=== PATIENT | female | born 1980 | race African-American/Black ===

== ENCOUNTER 2017-02-20 09:45 | Inpatient (IN) ==
[2017-02-20] MEDS ORDERED: DILTIAZEM 50 MG/10 ML VIAL IV STA (10:11)
[2017-02-20] MEDS ORDERED: SODIUM CHLORIDE 0.9% 500 ML IV STA (10:11)
--- NOTE | 2017-02-20 10:13 | Emergency Department Note ---
Asha Shook Gwan, am scribing for, and in the presence of, Singh Jackson MD 10:07 . Renetta Shook James D, MD, personally performed the services described in this documentation, ascribed by Latricia Barry in my presence, and it is both accurate and complete . Arrival - Arrival Chief Complaint: Syncope Stated Complaint: feeling miguel and hot/have pacemaker ED Nursing Triage Note: Pt c/o feeling faint, dizzy, and weakness since yesterday. Denies CP or SOB. Mode of Arrival: Ambulatory Limitations: No Limitations Source: Patient, Old Records Reviewed, RN Notes Reviewed - History of Present Illness HPI Narrative: Patient is a 37 y/o female, with a hx of Sudden Cardiac , who presents to the ED with a c/o dizziness, generalized weakness and feeling faint with an onset yesterday. Patient denies chest pain, SOB or the actual feeling of her heart beating fast. . She confirmed that she had her defibrillator inserted in 2012 and that she recently started back working. Patient is followed by Dr. Snow at [place] and that she was last seen in office less than 3 months ago with negative results . Pt has a PMHx of HTN and Internal Defibrillator. Onset (ago): day(s) Consistency: constant Severity: moderate Allergies/Adverse Reactions: Allergies Allergy/AdvReac Type Severity Reaction Status Date / Time No Known Allergies Allergy Verified 02/20/17 09:48 Home Medications: Home Medications Medication Instructions Recorded Confirmed Type Metoprolol Tartrate 50 mg PO BID 02/20/17 02/20/17 History amLODIPine [Norvasc] 10 mg PO QAM 02/20/17 02/20/17 History Review of System - Review of System 12 point system: reviewed and no additional remarkable complaints except as stated - Review of System Constitutional: Present: as per HPI, fever, weakness Eyes: Absent: discharge Head/Ears/Nose/Throat: Absent: earache Respiratory: Absent: cough Cardiovascular: Absent: chest pain Gastrointestinal: Present: diarrhea. Absent: nausea, vomiting Musculoskeletal: Absent: arm pain, leg pain Medical,Surgical,& Family Hx - Medical History Cardio: History of: Hypertension - Surgical History Cardiac Surgeries: Sugical HX of: Internal Defibrillator - Social History Smoking Status: Never smoker Exam Physical Examination: GENERAL: This is a well-nourished, well-developed black female in no apparent distress. VITAL SIGNS: HEENT: Head is normocephalic and atraumatic. Pupils are equally round and reactive to light. Extraocular movement are intact. Oropharynx is benign with moist mucous membranes. NECK: Neck is soft and supple without tenderness. There are no masses. There is no lymphadenopathy. LUNGS: Lungs are clear to auscultation bilaterally. Chest rises symmetrically. There is no chest wall tenderness. CV: Heart is irregular rate and irregular rhythm. ABDOMEN: Abdomen is soft, non-tender to palpation. There are no abnormal masses palpated. There is no organomegaly. Bowel sounds are present and active. SKIN: Skin is warm and dry. No rash. EXTREMITIES: Patient has full range of motion without tenderness. There is no pedal edema. NEUROLOGIC: Awake, alert, and oriented x4. Cranial nerves II through XII are grossly intact. There are no motorsensory deficits. PSYCHIATRIC: Normal affect. Normal mood. Vital Signs: Vital Signs Temperature 96.7 F L 02/20/17 10:53 Pulse Rate 142 H 02/20/17 10:53 Respiratory Rate 18 02/20/17 10:53 Blood Pressure 95/54 02/20/17 10:53 O2 Sat by Pulse Oximetry 100 02/20/17 09:52 Course Course Narrative: Patient was given Cardizem bolus and infusion while in the emergency department. - Consultations Consultation #1: Discussed with Dr. Waldron. Patient will be admitted to his service. Initial orders written for him. He will assume care upon patient's arrival to the [facility]. Time: 11:30 Results - Labs CBC & BMP: 02/20/17 10:27 02/20/17 10:27 Lab Results: I have reviewed the patients labs Labs: Laboratory Tests 02/20/17 10:27 INR 1.0 PT Patient/Control Mix 10.8 Circ Anticoag PTT 24.7 Laboratory Tests 02/20/17 10:27 Troponin I < 0.015 Laboratory Tests 02/20/17 02/20/17 10:27 10:27 WBC 5.2 RBC 4.84 Hgb 9.9 L Hct 33.4 L MCV 69.0 L MCH 21 L MCHC 29.6 L RDW 18.5 H Baso % (Auto) 1.0 H Sodium 141 Potassium 4.1 Chloride 111 H Carbon Dioxide 22 BUN 13 Creatinine 0.90 Glucose 109 H Globulin 3.7 H Albumin/Globulin Ratio 0.9 L - EKG EKG results: interpreted by ERMD - Impressions EKG: Atrial fib with RVR, electronic ventricular pacemaker. T-wave inversion laterally and ST segment depression laterally. - Diagnostic Findings Procedure: Chest x-ray: image reviewed by me (No infiltrates, no pleural effusions, AICD in position.) Disposition Clinical Impression: Atrial fibrillation with RVR, History of sudden cardiac successfully resuscitated, Essential hypertension Case discussed with: patient, patient's family Disposition: Still a Patient Condition: Stable Time of Disposition: 10:28
[2017-02-20] MEDS ORDERED: DILTIAZEM 50 MG/10 ML VIAL IV ONE (10:14)
--- NOTE | 2017-02-20 10:25 | EKG Report ---
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
--- NOTE | 2017-02-20 10:29 | XRay Report ---
XR chest 1V portable Indication: SOB Comparison: Chest x-ray dated December 24, 2013 Technique: Single frontal view of the chest Findings: [id number] cardiomegaly. Cardiac pacemaker apparatus again noted. No focal consolidation, pleural effusion, or pneumothorax. Osseous and surrounding soft tissue structures appear grossly unchanged. IMPRESSION: Continued cardiomegaly without indy pulmonary edema. PROCEDURE INTERPRETED AT [facility] DEPARTMENT OF RADIOLOGY Final Report Signed by: Dr Manohar Cooper
[2017-02-20 10:48] LABS: PT Patient Result 10.8 SECS; Partial Thromboplastin Time 24.7 SECS (0-40)
[2017-02-20 11:03] LABS: Basophils # 0.1 10*3/uL (0.0-0.2); Eosinophils # 0.1 10*3/uL (0.0-0.87); Eosinophils % 2.3 % (0.00-10.9); Hematocrit 33.4 VOL% (35.7-47.0); Hemoglobin 9.9 GM/DL (12.0-16.0); Immature Granulocytes % 0.4 %; Immature Granulocytes Absolute 0.02 #; Lymphocytes # 1.7 10*3/uL (1.4-4.0); Lymphocytes % 32.1 % (21.3-54.2); Mean Corpuscular HGB Conc 29.6 GM/DL (32-36); Mean Corpuscular Hemoglobin 21 PG (27-34); Monocytes # 0.4 10*3/uL (0.11-0.8); Monocytes % 8.1 % (1.7-12.7); NRBC # 0.02 10*3/uL; Neutrophils # 2.9 10*3/uL (1.4-7.4); Neutrophils % 56.1 % (38.7-73.9); Platelet Count 149 T/CUMM (130-400); Red Blood Count 4.84 MC/CUMM (3.8-5.5); Red Cell Distribution Width 18.5 % (9.3-17.3); White Blood Count 5.2 T/CUMM (4-12)
[2017-02-20 11:05] LABS: Free T4 (Free Thyroxine) 1.06 NG/DL (0.76-1.46); Magnesium 2.3 MG/DL (1.8-2.4)
[2017-02-20 11:16] LABS: Alanine Aminotransferase 39 U/L (13-56); Albumin 3.5 G/DL (3.4-5.0); Alkaline Phosphatase 61 U/L (45-117); Aspartate Amino Transferase 22 U/L (0-37); Bilirubin,Total < 0.39 MG/DL (0.2-1.0); Blood Urea Nitrogen 13 MG/DL (7-18); Calcium 8.5 MG/DL (8.5-10.1); Glucose 109 MG/DL (74-106); Osmolality,Calculated 281.3 MOS/KG (273-304); Potassium 4.1 MMOL/L (3.5-5.1); Sodium 141 MMOL/L (136-145); Thyroid Stimulating Hormone 0.694 uIU/ml (0.358-3.74); Total Protein 7.2 G/DL (6.4-8.3); Troponin I Only < 0.015 NG/ML (0.00-0.045)
[2017-02-20] MEDS ORDERED: MAGNESIUM SULF RIDER 4 GM in PREMIX 1 EACH IV PRN (13:18)
[2017-02-20] MEDS ORDERED: MAGNESIUM SULF RIDER 2 GM in PREMIX 1 EACH IV PRN (13:18)
[2017-02-20] MEDS ORDERED: ONDANSETRON 4 MG/2 ML VIAL IV PRN (13:18)
[2017-02-20] MEDS ORDERED: ENOXAPARIN 40 MG/0.4 ML SYRINGE SUBCUT SCH (13:30)
[2017-02-20] MEDS: SODIUM CHLORIDE 0.9% 1,000 ML IV SCH (13:39)
--- NOTE | 2017-02-20 14:32 | Cardiology History & Physical ---
<Selin Clark E - Last Filed: 02/20/17 14:35> Assessment and Plan - Time spent with patient Time spent with patient: Greater than 30 minutes (1) Atrial fibrillation with RVR Status: Acute Assessment and plan: See plan of care listed below Current Visit: Yes (2) Essential hypertension Status: Chronic Assessment and plan: See plan of care listed below Current Visit: Yes (3) History of sudden cardiac successfully resuscitated Status: Chronic Assessment and plan: See plan of care listed below Current Visit: Yes (4) AICD (automatic cardioverter/defibrillator) present Status: Chronic Assessment and plan: See plan of care listed below Current Visit: Yes History of Present Illness Chief complaint: Atrial fibrillation with rapid ventricular response History of present illness: 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 Antony, 37BF, has risk factors significant for: hypertension. 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 She previously saw Dr. Mendez in clinic, she got behind on her bills and could not afford to pay his office therefore she transitioned to Dr. Kuo at [place]. She would like to change back to Dr. Mendez. Patient tells me she has her device interrogated every 3 months. Cardiac catheterization September 11, 2012 revealed no evidence of coronary artery disease, EF 50% without significant valvular disease. Patient presented to the emergency department at [facility] this morning with complaints of dizziness, generalized weakness and lightheadedness. This actually began yesterday. She was diagnosed with atrial fibrillation with rapid ventricular response. To her knowledge, this is a new diagnoses. She was given IV diltiazem and her heart rate has improved to approximately 100 bpm, she is feeling much better. No lightheadedness or dizziness at this time. She denies chest pain, heaviness or tightness. She denies shortness of breath and is usually very active. She has no prior history of CVA or stroke. She denies use of illicit drugs, excessive caffeine or energy drinks. CHADVASC SCORE 2. Patient is anemic with a hemoglobin and hematocrit 9.9 and 33.4 respectively. She tells me she is chronically anemic and takes oral iron. She does not take oral iron as prescribed. She still has a menstrual cycle and is currently on her menses. She tells me she has a heavy menstruation for 7 days a month. ASSESSMENT/PLAN: 1. ATRIAL FIBRILLATION WITH RVR -currently rate controlled on IV diltiazem. Will transition to oral diltiazem and wean off IV calcium channel astrid as able. Home medications include metoprolol and Norvasc. I will stop her Norvasc and start oral diltiazem. Patient believes this is new onset. I will ask that her device be interrogated in the morning. If this is truly new onset, may consider cardioversion. CHADVASC SCORE 2. We discussed anticoagulation with Dr. Mendez. I will also obtain records from Dr. Kuo's office. Echocardiogram has been ordered. 2. HYPERTENSION - patient reports good control. Will adjust medications accordingly during hospital stay 3. ANEMIA -we will add anemia studies, restart oral iron. 4. SUDDEN CARDIAC NOW S/P AICD 2011 -will have device interrogated in the morning. Home Medications Medication Instructions Recorded Confirmed Type Metoprolol Tartrate 50 mg PO BID 02/20/17 02/20/17 History amLODIPine [Norvasc] 10 mg PO QAM 02/20/17 02/20/17 History Allergies Allergy/AdvReac Type Severity Reaction Status Date / Time No Known Allergies Allergy Verified 02/20/17 09:48 Review of systems: REVIEW OF SYSTEMS: - Constitutional Constitutional: Present: Fatigue. Absent: syncope, anorexia, night sweats - EENT Eyes: Absent: blurry vision, loss of vision, diplopia Ears: Absent: decreased hearing, ear pain, ear discharge - Cardiovascular Cardiovascular: Denies: chest pain with exertion, dyspnea on exertion, edema. Acknowledges palpitations recently. Absent: chest pain with deep breath, claudication - Respiratory Respiratory: Denies: PRICE, cough. Absent: wheezing, hemoptysis, change in phlegm color - Gastrointestinal Gastrointestinal: Denies: constipation. Absent: abdominal pain, hematemesis, hematochezia, melena, change in bowel habits, nausea - Genitourinary Genitourinary: Absent: difficulty urinating, dysuria, urinary hesitancy, flank pain - Musculoskeletal Musculoskeletal: Denies: back pain Absent: joint swelling, muscle cramps, muscle weakness - Neurological Neurological: Present: normal gait without frequent falls. Recent dizziness, lightheadedness. Denies hemiparesis or paralysis. - Psychiatric Psychiatric: Absent: anxiety, depression, difficulty concentrating - Endocrine Endocrine: Present: fatigue. Absent: cold intolerance, heat intolerance, polyuria, polyphagia, polydipsia - Hematologic/Lymphatic Hematologic/Lymphatic: Present: easy bruising. Absent: easy bleeding -Integumentary Integumentary: Absent: lesions, rashes, skin breakdown Medical,Surgical,& Family Hx - Medical History Cardio: History of: Cardiac Dysrhythmia, Hypertension, Cardiovascular Problems ( 2011 sudden cardiac ) No history of: CAD, MT, Valvular Heart Disease Neurology: No history of: Seizures, TIA Endocrine: No history of: Diabetes Mellitus (NIDDM), Dyslipidemia, Thyroid Disorder - Surgical History Cardiac Surgeries: Sugical HX of: Internal Defibrillator Thoracic Surgeries: Patient denies;: Organ Transplant - Family History Family History: Reports;: Family Cancer (GRANDMOTHER, GRANDFATHER), Family Diabetes (MOTHER), Family Heart Disease (GRANDMOTHER), Family Hypertension ( MOTHER, SIBLINGS) - Social History Smoking Status: Never smoker Frequency of Alcohol Use: Frequently Type of Drug Use: None Cardiology Physical Exam - Constitutional Vitals: Vital Signs Temp Pulse Resp BP Pulse Ox 97.2 F L 83 18 99/48 99 02/20/17 13:27 02/20/17 13:27 02/20/17 13:27 02/20/17 13:27 02/20/17 13:27 Intake and Output 02/19/17 02/20/17 02/20/17 23:59 07:59 15:59 Intake Total Balance Intake: IV Cardizem Inj 125 mg In Ns 100 ml @ 10 MG/HR 10 mls /hr IV TITRATE PONCHO Rx#: [id number] Other: Weight 81.647 kg Patient Weight 02/20/17 23:59 Weight 81.647 kg Exam: General: [Appears well with no apparent distress.] [Pleasant and cooperative. ] [Appears comfortable.] HEENT: [PERRL, normocephalic, atraumatic. Mucous membranes moist. No jaundice noted. Conjunctiva moist and clear, sclerae anicteric] Neck: No JVD/HJR, no thyromegaly or lymphadenopathy noted. No carotid bruit appreciated Cardiac: [Irregularly irregular rhythm, tachycardia rate] [No obvious murmur, rub or gallop.] Left chest incision healing well without dehiscence or drainage Lungs: [Clear to auscultation without accessory muscle use to assist the respiratory pattern.] Not requiring oxygen Abdomen: Soft, bowel sounds normoactive. Nontender and nondistended. No abdominal bruit or thrill noted. No masses noted. Musculoskeletal: No fluid collection. Decreased range of motion is noted. Extremities: No clubbing, cyanosis noted. [ No edema noted.] Upper extremity pulses 2+. Lower extremity pulses 2+. Capillary refill less than 3 seconds. Skin: No unusual lesions or rashes. No skin breakdown appreciated. Neuro: Awake, alert and oriented 3. Moves all extremities well without hemiparesis or paralysis. No essential tremor is appreciated. Result/EKG - Labs CBC & BMP: 02/20/17 10:27 02/20/17 10:27 Lab Results: I have reviewed the past 24 hour labs - Diagnostic Findings Procedure: Chest x-ray: report reviewed by ks - EKG EKG results: interpreted by ks EKG shows: atrial fibrillation <Shaquille Mendez - Last Filed: 02/20/17 20:20> History of Present Illness History of present illness: Patient personally interviewed and examined and chart reviewed. I discussed this case with Selin Clark NP. I agree with the assessment and evaluation and plan. In summation in addition Ms. Antony is a 37 year old female who previously has had severe cardiomyopathy and sudden requiring AICD no 2011. The patient has not Follow-up. She's been seeing Dr. Kuo [facility]. The patient though was admitted this time after having feeling of weak and tired with standing and atrial fibrillation with rapid ventricular response. We will now start the process of evaluating the patient. We have found on echocardiogram his left ventricular function is normal with her atrium is slightly dilated. No significant valvular abnormalities. I discussed our plan of anticoagulation and rate control and possible cardioversion soon. It appears clinically this may be gone on for the last couple days. Cardiology Physical Exam - Constitutional Vitals: Vital Signs Temp Pulse Resp BP Pulse Ox 97.7 F 88 18 106/70 97 02/20/17 15:45 02/20/17 15:45 02/20/17 15:45 02/20/17 15:45 02/20/17 15:45 Intake and Output 02/20/17 02/20/17 02/20/17 07:59 15:59 23:59 Intake Total 20 / 20 Balance Intake: IV Cardizem Inj 125 mg In Ns 100 ml @ 10 MG/HR 10 mls /hr IV TITRATE PONCHO Rx#: [id number] Other: Weight 81.647 kg Patient Weight 02/20/17 23:59 Weight 81.647 kg Result/EKG - Labs CBC & BMP: 02/20/17 15:09 02/20/17 10:27 Labs: Laboratory Results - last 24 hr 02/20/17 02/20/17 02/20/17 15:06 15:08 15:09 WBC 5.3 RBC 4.73 Hgb 9.7 L Hct 33.3 L MCV 70.8 L MCH 21 L MCHC 29.0 L RDW 18.5 H Plt Count 135 MPV 11.3 Neut % (Auto) 51.8 Lymph % (Auto) 39.7 Barbour % (Auto) 5.8 Eos % (Auto) 1.5 Baso % (Auto) 0.8 Neut # (Auto) 2.8 Lymph # (Auto) 2.1 Barbour # (Auto) 0.3 Eos # (Auto) 0.1 Baso # (Auto) 0.0 Immature Gran % 0.4 Nucleated RBC % 0.0 Immature Gran # 0.02 Nucleated RBCs # 0.00 Absolute Retic 0.1 Percent Retic 2.0 H Retic Hgb Equivalent 21.5 L Ferritin 4.7 L Vitamin B12 Folate Urine Opiates Screen Ur Barbiturates Screen Ur Phencyclidine Scrn U Amphetamine/Methamph U Benzodiazepines Scrn U Cocaine Metab Screen U Cannabinoids Screen MARIELA (IgG-AHG) Negative MARIELA, Polyspecific Negative 02/20/17 02/20/17 15:09 Unknown WBC RBC Hgb Hct MCV MCH MCHC RDW Plt Count MPV Neut % (Auto) Lymph % (Auto) Barbour % (Auto) Eos % (Auto) Baso % (Auto) Neut # (Auto) Lymph # (Auto) Barbour # (Auto) Eos # (Auto) Baso # (Auto) Immature Gran % Nucleated RBC % Immature Gran # Nucleated RBCs # Absolute Retic Percent Retic Retic Hgb Equivalent Ferritin Vitamin B12 650 Folate > 24.0 H Urine Opiates Screen Negative Ur Barbiturates Screen Negative Ur Phencyclidine Scrn Negative U Amphetamine/Methamph Positive H U Benzodiazepines Scrn Negative U Cocaine Metab Screen Negative U Cannabinoids Screen Positive H MARIELA (IgG-AHG) MARIELA, Polyspecific
[2017-02-20] MEDS ORDERED: DILTIAZEM 30 MG TABLET PO SCH (15:00)
[2017-02-20 15:24] LABS: Basophils % 0.8 % (0.0-0.8); Eosinophils # 0.1 10*3/uL (0.0-0.87); Eosinophils % 1.5 % (0.00-10.9); Hemoglobin 9.7 GM/DL (12.0-16.0); Immature Granulocytes % 0.4 %; Immature Granulocytes Absolute 0.02 #; Lymphocytes # 2.1 10*3/uL (1.4-4.0); Lymphocytes % 39.7 % (21.3-54.2); Mean Corpuscular Hemoglobin 21 PG (27-34); Mean Corpuscular Volume 70.8 FL (87-102); Mean Platelet Volume 11.3 FL (9.6-12.0); Monocytes # 0.3 10*3/uL (0.11-0.8); Monocytes % 5.8 % (1.7-12.7); Neutrophils # 2.8 10*3/uL (1.4-7.4); Neutrophils % 51.8 % (38.7-73.9); Platelet Count 135 T/CUMM (130-400); Red Blood Count 4.73 MC/CUMM (3.8-5.5); Red Cell Distribution Width 18.5 % (9.3-17.3); White Blood Count 5.3 T/CUMM (4-12)
[2017-02-20] MEDS: ASCORBIC ACID 500 MG TABLET PO SCH ×2 (15:43→21:13)
[2017-02-20 15:44] LABS: Hematocrit 33.3 VOL% (35.7-47.0)
[2017-02-20 15:53] LABS: Folate > 24.0 NG/ML (5.4-24.0); Vitamin B12 650 PG/ML (211-911)
[2017-02-20 16:16] LABS: Barbiturates Screen,Urine Negative (Negative); Benzodiazepines Screen,Urine Negative (Negative); Cannabinoid Screen,Urine Positive (Negative); Opiate Screen,Urine Negative (Negative); Phencyclidine Screen,Urine Negative (Negative)
--- NOTE | 2017-02-20 19:48 | ECHO Report ---
Christine Antony Exam Date: 02/20/2017 11:58 Referring Physician: Technologist: Nataliya Terrell LRJONATHAN Age: 37 Ht (in): Wt (lb): Gender: F Exam Location: [facility] Echo Indications: A fib, hx. sudden cardiac dealth BP: / HR: 75 Rhythm: atrial fibrillation Technical Quality: limited and fair at best IMPRESSIONS 1. Patient in atrial fibrillation with rapid ventricular response. 2. Left ventricle is normal size and overall normal ejection fraction around 55%. There is moderate to severe concentric left ventricular hypertrophy. Diastolic dysfunction is not amenable secondary to atrial fibrillation. 3. Left atrium at worst is mildly dilated. 4. Mitral valve anatomically normal with trace to mild regurgitation. 5. Mild tricuspid regurgitation. 6. Normal right-sided pressures. MEASUREMENTS (Male / Female) Normal Values 2D ECHO LV Diastolic Diameter PLAX 4.5 cm 4.2 - 5.9 / 3.9 - 5.3 cm LV Systolic Diameter PLAX 2.9 cm LV Fractional Shortening PLAX 36.4 % IVS Diastolic Thickness 1.9 cm 0.6 - 1.0 / 0.6 - 0.9 cm LVPW Diastolic Thickness 1.7 cm 0.6 - 1.0 / 0.6 - 0.9 cm RV Internal Dim ED PLAX 1.9 cm Aortic Root Diameter 2.5 cm LA Systolic Diameter LX 4.1 cm 3.0 - 4.0 / 2.7 - 3.8 cm DOPPLER TR Peak Velocity 236.0 cm/s TR Peak Gradient 22.3 mmHg FINDINGS Left Ventricle Left ventricle is normal size and overall normal systolic function but the patient is tachycardic. Ejection fraction is probably around 55%. There is moderate to severe concentric left ventricular hypertrophy. Right Ventricle Normal right ventricular size. Right Atrium Normal right atrial size. Left Atrium Mildly increased left atrial diameter. Mitral Valve Mitral valve is anatomically morphologically normal. Trace to mild mitral valve regurgitation. Aortic Valve The aortic valve is trileaflet, delicate and has normal motion. No Doppler abnormalities. Tricuspid Valve Morphologically normal tricuspid valve. Mild tricuspid valve regurgitation. Tricuspid regurgitation velocities suggest a PAP of 22.3 mmHg + RAP. Pulmonic Valve Mild pulmonic valve sclerosis. Trace pulmonary valve regurgitation. Pericardium No pericardial effusion. Aorta Normal size aortic root and proximal ascending aorta. Shaquille Waldron MD (Electronically Signed) Final Date: 20 Feb 2017 19:47
[2017-02-20 20:38] LABS: Sedimentation Rate-Westergren 20 MM/HR (0-20)
[2017-02-20] MEDS ORDERED: METOPROLOL TARTRATE 50 MG TABLET PO SCH (21:00)
[2017-02-20] MEDS: SOTALOL 80 MG TABLET PO SCH (21:13)
[2017-02-20] MEDS: FERROUS SULFATE 325 MG TABLET PO SCH (21:13)
[2017-02-20] MEDS: DILTIAZEM 60 MG TABLET PO SCH (21:13)
[2017-02-20] MEDS: APIXABAN 5 MG TABLET PO SCH (21:14)
[2017-02-20 22:22] LABS: Anisocytosis 1+; Ovalocytes Slight; Polychromasia Slight
[2017-02-20 22:23] LABS: Hypochromasia Slight; Platelet Estimate Adequate
[2017-02-21 06:18] LABS: Basophils % 0.5 % (0.0-0.8); Eosinophils # 0.1 10*3/uL (0.0-0.87); Eosinophils % 1.3 % (0.00-10.9); Hematocrit 28.7 VOL% (35.7-47.0); Hemoglobin 8.4 GM/DL (12.0-16.0); Immature Granulocytes % 0.2 %; Immature Granulocytes Absolute 0.01 #; Lymphocytes # 2.3 10*3/uL (1.4-4.0); Lymphocytes % 41.1 % (21.3-54.2); Mean Corpuscular HGB Conc 29.3 GM/DL (32-36); Mean Corpuscular Hemoglobin 20 PG (27-34); Mean Corpuscular Volume 69.8 FL (87-102); Monocytes # 0.4 10*3/uL (0.11-0.8); Monocytes % 7.9 % (1.7-12.7); Neutrophils # 2.7 10*3/uL (1.4-7.4); Platelet Count 115 T/CUMM (130-400); Red Blood Count 4.11 MC/CUMM (3.8-5.5); Red Cell Distribution Width 18.2 % (9.3-17.3); White Blood Count 5.6 T/CUMM (4-12)
[2017-02-21 06:39] LABS: Hypochromasia 1+; Macrocytosis 1+
[2017-02-21 06:47] LABS: Calcium 8.3 MG/DL (8.5-10.1); Magnesium 2.3 MG/DL (1.8-2.4); Potassium 3.8 MMOL/L (3.5-5.1)
[2017-02-21 06:58] LABS: Risk Ratio 3.63; VLDL CHOLESTEROL 22.8 MG/DL
--- NOTE | 2017-02-21 07:49 | EKG Report ---
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
[2017-02-21 08:33] LABS: Hemoglobin A1 (Alkaline) 97.1 % (96.5-98.5); Hemoglobin A2 (Alkaline) 2.9 % (1.5-3.5)
[2017-02-21] MEDS: ASCORBIC ACID 500 MG TABLET PO SCH ×2 (09:11→21:12)
[2017-02-21] MEDS: FERROUS SULFATE 325 MG TABLET PO SCH ×2 (09:11→21:12)
[2017-02-21] MEDS: SOTALOL 80 MG TABLET PO SCH ×2 (09:11→21:12)
[2017-02-21] MEDS: APIXABAN 5 MG TABLET PO SCH ×2 (09:11→21:12)
[2017-02-21] MEDS: DILTIAZEM 60 MG TABLET PO SCH ×4 (09:12→21:12)
[2017-02-21] MEDS ORDERED: DIGOXIN 0.5 MG/2 ML AMP IV ONE (10:15)
[2017-02-21] MEDS: SODIUM CHLORIDE 0.9% 1,000 ML IV SCH (10:37)
--- NOTE | 2017-02-21 11:01 | Case Mgmt Physician Query Form ---
TB Signs and Symptoms Screening ([place]) INSTRUCTIONS: To be completed annually on residents/staff with a significant Tuberculin Skin Test (TST) upon admission/hire or a prior significant TST. To be completed on all staff at hire. Please respond to each listed symptom with an (X) in either the "YES" or "NO" box. Do you currently have any of the following symptoms: YES NO ( ) ( x) A cough If yes, is it: ( ) Productive ( ) Non- productive ( ) ( x) Hemoptysis (spitting up blood) ( ) ( x) Chest pains ( ) (x ) Weight Loss ( ) (x ) Fever ( ) (x ) Night Sweats (x ) ( ) Weakness ( ) (x ) Loss of Appetite ( ) ( x) Difficulty Breathing If you answered YES" to any of the above questions, how long have symptoms been present? Comments: If you have any questions, please contact me. thank you, Jasen Gomes RN Case Manager O:[phone] P: [phone] F: [phone] [email or web address]
--- NOTE | 2017-02-21 11:53 | Cardiology Progress Note ---
<Selin Puckett E - Last Filed: 02/21/17 11:36> Assessment and Plan - Time spent with patient Time spent with patient: Greater than 30 minutes (1) Atrial fibrillation with RVR Status: Acute Assessment and plan: See plan of care listed below Current Visit: Yes (2) Essential hypertension Status: Chronic Assessment and plan: See plan of care listed below Current Visit: Yes (3) History of sudden cardiac successfully resuscitated Status: Chronic Assessment and plan: See plan of care listed below Current Visit: Yes (4) AICD (automatic cardioverter/defibrillator) present Status: Chronic Assessment and plan: See plan of care listed below Current Visit: Yes (5) Methamphetamine abuse Status: Chronic Assessment and plan: SEE PLAN OF CARE LISTED BELOW Current Visit: Yes (6) Marijuana abuse Status: Chronic Assessment and plan: SEE PLAN OF CARE LISTED BELOW Current Visit: Yes (7) Alcohol abuse Status: Chronic Assessment and plan: SEE PLAN OF CARE LISTED BELOW Current Visit: Yes Cardiology - PN: Subj Interval history: [employer] CONSULTANT: DR. MENDZE SUMMARY: Ms. Antony, 37BF, has a history of sudden cardiac August 2012 requiring ICD, performed by Dr. Mendez. She did not not follow-up due to financial issues. Eventually, she saw Dr. Kuo at [facility]. She was admitted February 20, 2017, with complaints of dizziness, generalized weakness and lightheadedness. She was diagnosed with new onset of atrial fibrillation with rapid ventricular response. FEBRUARY 21, 2017: Overnight, her urine drug screen has returned positive for AMPHETAMINES/METHAMPHETAMINES and MARIJUANA. (She was positive for marijuana when she had sudden cardiac as well). Her IV diltiazem has been discontinued and heart rate has improved but continues to be mildly elevated around 100 - 110 bpm. She has history of anemia. She was hydrated overnight and with this hydration her hemoglobin has dropped from 9.7 to 8.4. (Iron deficiency anemia is noted per labs). Her symptoms of dizziness lightheadedness have improved. She has been started on sotalol last evening, ascorbic acid p.o. twice daily, Eliquis 5 mg orally twice daily. We will closely monitor her anemia. In the past, she was prescribed oral iron replacement but she did not take as prescribed. She tells me she will take as prescribed. She is CHADVASC SCORE 2. Device was interrogated today. Her initial onset of atrial fibrillation occurred February 17, 2017 and lasted approximately 54 hours. She then returned to normal sinus rhythm and returned to atrial fibrillation over this past weekend. Echo reveals EF 50%, moderate concentric left ventricular hypertrophy. No significant valvular abnormality noted ASSESSMENT/PLAN: 1. ATRIAL FIBRILLATION WITH RVR - Rate has improved and IV diltiazem has been weaned off. She is on sotalol twice daily, ascorbic acid twice daily, Eliquis 5 mg twice daily and diltiazem tablet 60 mg p.o. 4 times daily. I will give her 1 dose of IV digoxin then stop. EKG this morning and in the morning. Currently 2. HYPERTENSION -good control has been noted during this hospital stay. 3. ANEMIA -iron deficiency anemia noted. Continue with oral iron replacement. Continue with Eliquis and we will have her follow-up closely for hemoglobin and hematocrit results. 4. SUDDEN CARDIAC NOW S/P AICD 2011 -continue current plan of care. 5. METHAMPHETAMINE, MARIJUANA POSITIVE, FREQUENT USE OF ALCOHOL -suspect the atrial fibrillation is a result of the use of illicit drugs and alcohol. The merits of cessation of all of the above were thoroughly discussed Exam (Progress Note) - Constitutional Vitals: Period Temp Pulse Resp BP Sys/Collins Pulse Ox Last 24 Hr 96.4 F-97.9 F 82-124 16-20 95-131/48-79 92-99 Exam: General: [Appears well with no apparent distress.] [Pleasant and cooperative. ] [Appears comfortable.] HEENT: [PERRL, normocephalic, atraumatic. Mucous membranes moist. No jaundice noted. Conjunctiva moist and clear, sclerae anicteric] Neck: No JVD/HJR, no thyromegaly or lymphadenopathy noted. No carotid bruit appreciated Cardiac: [Irregularly irregular rhythm, tachycardia rate. [No murmur rub or gallop.] Lungs: [Clear to auscultation without accessory muscle use to assist the respiratory pattern.] Not requiring oxygen. Abdomen: Soft, bowel sounds normoactive. Nontender and nondistended. No abdominal bruit or thrill noted. No masses noted. Musculoskeletal: No fluid collection. Decreased range of motion is noted. Extremities: No clubbing, cyanosis noted. [ No edema noted.] Upper extremity pulses 2+. Lower extremity pulses 2+. Capillary refill less than 3 seconds. Skin: No unusual lesions or rashes. No skin breakdown appreciated. Neuro: Awake, alert and oriented 3. Moves all extremities well without hemiparesis or paralysis. No essential tremor is appreciated. Result/EKG - Labs CBC & BMP: 02/21/17 04:13 02/21/17 04:13 Lab Results: I have reviewed the past 24 hour labs Labs: Laboratory Results - last 24 hr 02/20/17 02/20/17 02/20/17 15:06 15:08 15:09 WBC 5.3 RBC 4.73 Hgb 9.7 L Hct 33.3 L MCV 70.8 L MCH 21 L MCHC 29.0 L RDW 18.5 H Plt Count 135 MPV 11.3 Neut % (Auto) 51.8 Lymph % (Auto) 39.7 [place] % (Auto) 5.8 Eos % (Auto) 1.5 Baso % (Auto) 0.8 Neut # (Auto) 2.8 Lymph # (Auto) 2.1 [place] # (Auto) 0.3 Eos # (Auto) 0.1 Baso # (Auto) 0.0 Immature Gran % 0.4 Nucleated RBC % 0.0 Immature Gran # 0.02 Nucleated RBCs # 0.00 Anemia Panel Interp Platelet Estimate Adequate Polychromasia Slight Hypochromasia Slight Anisocytosis 1+ Macrocytosis Ovalocytes Slight ESR Westergren 20 Absolute Retic 0.1 Percent Retic 2.0 H Retic Hgb Equivalent 21.5 L Hemoglobin A1 Hemoglobin A2 Hgb ELP Interp Sodium Potassium Chloride Carbon Dioxide Anion Gap BUN Creatinine GFR Calculation BUN/Creatinine Ratio Glucose Calculated Osmolality Calcium Magnesium Ferritin 4.7 L Triglycerides Cholesterol LDL Cholesterol VLDL Cholesterol HDL Cholesterol Heart Disease Risk Ratio Vitamin B12 Folate Urine Opiates Screen Ur Barbiturates Screen Ur Phencyclidine Scrn U Amphetamine/Methamph U Benzodiazepines Scrn U Cocaine Metab Screen U Cannabinoids Screen MARIELA (IgG-AHG) Negative MARIELA, Polyspecific Negative 02/20/17 02/20/17 02/21/17 15:09 Unknown 04:13 WBC 5.6 RBC 4.11 Hgb 8.4 L Hct 28.7 L MCV 69.8 L MCH 20 L MCHC 29.3 L RDW 18.2 H Plt Count 115 L MPV Neut % (Auto) 49.0 Lymph % (Auto) 41.1 [place] % (Auto) 7.9 Eos % (Auto) 1.3 Baso % (Auto) 0.5 Neut # (Auto) 2.7 Lymph # (Auto) 2.3 [place] # (Auto) 0.4 Eos # (Auto) 0.1 Baso # (Auto) 0.0 Immature Gran % 0.2 Nucleated RBC % 0.0 Immature Gran # 0.01 Nucleated RBCs # 0.00 Anemia Panel Interp Platelet Estimate Polychromasia Hypochromasia 1+ Anisocytosis Macrocytosis 1+ Ovalocytes ESR Westergren Absolute Retic Percent Retic Retic Hgb Equivalent Hemoglobin A1 97.1 Hemoglobin A2 2.9 Hgb ELP Interp Sodium Potassium Chloride Carbon Dioxide Anion Gap BUN Creatinine GFR Calculation BUN/Creatinine Ratio Glucose Calculated Osmolality Calcium Magnesium Ferritin Triglycerides Cholesterol LDL Cholesterol VLDL Cholesterol HDL Cholesterol Heart Disease Risk Ratio Vitamin B12 650 Folate > 24.0 H Urine Opiates Screen Negative Ur Barbiturates Screen Negative Ur Phencyclidine Scrn Negative U Amphetamine/Methamph Positive H U Benzodiazepines Scrn Negative U Cocaine Metab Screen Negative U Cannabinoids Screen Positive H MARIELA (IgG-AHG) MARIELA, Polyspecific 02/21/17 02/21/17 04:13 04:13 WBC RBC Hgb Hct MCV MCH MCHC RDW Plt Count MPV Neut % (Auto) Lymph % (Auto) [place] % (Auto) Eos % (Auto) Baso % (Auto) Neut # (Auto) Lymph # (Auto) [place] # (Auto) Eos # (Auto) Baso # (Auto) Immature Gran % Nucleated RBC % Immature Gran # Nucleated RBCs # Anemia Panel Interp Platelet Estimate Polychromasia Hypochromasia Anisocytosis Macrocytosis Ovalocytes ESR Westergren Absolute Retic Percent Retic Retic Hgb Equivalent Hemoglobin A1 Hemoglobin A2 Hgb ELP Interp Sodium 143 Potassium 3.8 Chloride 111 H Carbon Dioxide 23 Anion Gap 12.8 BUN 9 Creatinine 0.70 GFR Calculation 138 BUN/Creatinine Ratio 12.00 Glucose 91 Calculated Osmolality 283.0 Calcium 8.3 L Magnesium 2.3 Ferritin Triglycerides 114 Cholesterol 156 LDL Cholesterol 101.0 VLDL Cholesterol 22.8 HDL Cholesterol 43 Heart Disease Risk Ratio 3.63 Vitamin B12 Folate Urine Opiates Screen Ur Barbiturates Screen Ur Phencyclidine Scrn U Amphetamine/Methamph U Benzodiazepines Scrn U Cocaine Metab Screen U Cannabinoids Screen MARIELA (IgG-AHG) MARIELA, Polyspecific - Diagnostic Findings Procedure: Chest x-ray: report reviewed by me - EKG EKG results: interpreted by me (RVR) EKG shows: atrial fibrillation (RVR) <Shaquille Mendez - Last Filed: 02/21/17 15:41> Cardiology - PN: Subj Interval history: The patient is personally interviewed and examined by me in the chart reviewed. I discussed this case with Selin Puckett NP. I agree with the assessment and evaluation and plan. In summation addition this patient persisted in atrial fibrillation with improvement ventricular response but still elevated. She has had issues with anemia. She has at enough risk to warrant anticoagulation. She has a long history of anemia which does concern me with being on anticoagulation. Another issue is that her urine drug screen was positive for methamphetamines and cannabinoids. She denies this though. Pacemaker interrogation indicates that she has gone into atrial fibrillation recently. In light of these findings I suspect that she would best be served to have transient echocardiogram followed by electrocardioversion if no thrombus is found. Have discussed transept echocardiogram with cardioversion with the patient and her present. I reviewed medication procedures how they would be carried out and the risks which include but not history limited to aspiration pneumonia as well as esophageal tear or rupture requiring emergent surgery as well as the possibility of malignant abnormal heart rhythm and even the possibility of a stroke. They voice understanding and agree to proceed. We'll plan on doing this tomorrow. Today we'll go ahead and increase her sotalol dose. The patient's exam is as noted and I agree with this. Her lungs remained clear , heart is irregular heart rate around 100's. Abdomen is benign. Extremities without edema. Neurologic is intact without deficit. Exam (Progress Note) - Constitutional Vitals: Period Temp Pulse Resp BP Sys/Collins Pulse Ox Last 24 Hr 96.4 F-97.9 F 82-124 16-20 95-131/52-79 92-98 Result/EKG - Labs CBC & BMP: 02/21/17 04:13 02/21/17 04:13 Labs: Laboratory Results - last 24 hr 02/20/17 02/20/17 02/20/17 15:06 15:08 15:09 WBC 5.3 RBC 4.73 Hgb 9.7 L Hct 33.3 L MCV 70.8 L MCH 21 L MCHC 29.0 L RDW 18.5 H Plt Count 135 MPV 11.3 Neut % (Auto) 51.8 Lymph % (Auto) 39.7 [place] % (Auto) 5.8 Eos % (Auto) 1.5 Baso % (Auto) 0.8 Neut # (Auto) 2.8 Lymph # (Auto) 2.1 [place] # (Auto) 0.3 Eos # (Auto) 0.1 Baso # (Auto) 0.0 Immature Gran % 0.4 Nucleated RBC % 0.0 Immature Gran # 0.02 Nucleated RBCs # 0.00 Anemia Panel Interp Platelet Estimate Adequate Polychromasia Slight Hypochromasia Slight Anisocytosis 1+ Macrocytosis Ovalocytes Slight ESR Westergren 20 Absolute Retic 0.1 Percent Retic 2.0 H Retic Hgb Equivalent 21.5 L Hemoglobin A1 Hemoglobin A2 Hgb ELP Interp Sodium Potassium Chloride Carbon Dioxide Anion Gap BUN Creatinine GFR Calculation BUN/Creatinine Ratio Glucose Calculated Osmolality Calcium Magnesium Ferritin 4.7 L Triglycerides Cholesterol LDL Cholesterol VLDL Cholesterol HDL Cholesterol Heart Disease Risk Ratio Vitamin B12 Folate Urine Opiates Screen Ur Barbiturates Screen Ur Phencyclidine Scrn U Amphetamine/Methamph U Benzodiazepines Scrn U Cocaine Metab Screen U Cannabinoids Screen MARIELA (IgG-AHG) Negative MARIELA, Polyspecific Negative 02/20/17 02/20/17 02/21/17 15:09 Unknown 04:13 WBC 5.6 RBC 4.11 Hgb 8.4 L Hct 28.7 L MCV 69.8 L MCH 20 L MCHC 29.3 L RDW 18.2 H Plt Count 115 L MPV Neut % (Auto) 49.0 Lymph % (Auto) 41.1 [place] % (Auto) 7.9 Eos % (Auto) 1.3 Baso % (Auto) 0.5 Neut # (Auto) 2.7 Lymph # (Auto) 2.3 [place] # (Auto) 0.4 Eos # (Auto) 0.1 Baso # (Auto) 0.0 Immature Gran % 0.2 Nucleated RBC % 0.0 Immature Gran # 0.01 Nucleated RBCs # 0.00 Anemia Panel Interp Platelet Estimate Polychromasia Hypochromasia 1+ Anisocytosis Macrocytosis 1+ Ovalocytes ESR Westergren Absolute Retic Percent Retic Retic Hgb Equivalent Hemoglobin A1 97.1 Hemoglobin A2 2.9 Hgb ELP Interp Sodium Potassium Chloride Carbon Dioxide Anion Gap BUN Creatinine GFR Calculation BUN/Creatinine Ratio Glucose Calculated Osmolality Calcium Magnesium Ferritin Triglycerides Cholesterol LDL Cholesterol VLDL Cholesterol HDL Cholesterol Heart Disease Risk Ratio Vitamin B12 650 Folate > 24.0 H Urine Opiates Screen Negative Ur Barbiturates Screen Negative Ur Phencyclidine Scrn Negative U Amphetamine/Methamph Positive H U Benzodiazepines Scrn Negative U Cocaine Metab Screen Negative U Cannabinoids Screen Positive H MARIELA (IgG-AHG) MARIELA, Polyspecific 02/21/17 02/21/17 04:13 04:13 WBC RBC Hgb Hct MCV MCH MCHC RDW Plt Count MPV Neut % (Auto) Lymph % (Auto) [place] % (Auto) Eos % (Auto) Baso % (Auto) Neut # (Auto) Lymph # (Auto) [place] # (Auto) Eos # (Auto) Baso # (Auto) Immature Gran % Nucleated RBC % Immature Gran # Nucleated RBCs # Anemia Panel Interp Platelet Estimate Polychromasia Hypochromasia Anisocytosis Macrocytosis Ovalocytes ESR Westergren Absolute Retic Percent Retic Retic Hgb Equivalent Hemoglobin A1 Hemoglobin A2 Hgb ELP Interp Sodium 143 Potassium 3.8 Chloride 111 H Carbon Dioxide 23 Anion Gap 12.8 BUN 9 Creatinine 0.70 GFR Calculation 138 BUN/Creatinine Ratio 12.00 Glucose 91 Calculated Osmolality 283.0 Calcium 8.3 L Magnesium 2.3 Ferritin Triglycerides 114 Cholesterol 156 LDL Cholesterol 101.0 VLDL Cholesterol 22.8 HDL Cholesterol 43 Heart Disease Risk Ratio 3.63 Vitamin B12 Folate Urine Opiates Screen Ur Barbiturates Screen Ur Phencyclidine Scrn U Amphetamine/Methamph U Benzodiazepines Scrn U Cocaine Metab Screen U Cannabinoids Screen MARIELA (IgG-AHG) MARIELA, Polyspecific
--- NOTE | 2017-02-21 14:09 | EKG Report ---
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
[2017-02-21] MEDS ORDERED: SODIUM CHLORIDE 0.9% 1,000 ML IV SCH ×2 (16:00)
[2017-02-22 05:34] LABS: Calcium 8.4 MG/DL (8.5-10.1); Magnesium 2.4 MG/DL (1.8-2.4); Osmolality,Calculated 279.3 MOS/KG (273-304); Potassium 3.7 MMOL/L (3.5-5.1)
[2017-02-22 05:35] LABS: Basophils # 0.1 10*3/uL (0.0-0.2); Basophils % 0.9 % (0.0-0.8); Eosinophils # 0.1 10*3/uL (0.0-0.87); Eosinophils % 1.2 % (0.00-10.9); Hematocrit 33.7 VOL% (35.7-47.0); Immature Granulocytes % 0.5 %; Immature Granulocytes Absolute 0.03 #; Lymphocytes # 2.3 10*3/uL (1.4-4.0); Lymphocytes % 38.6 % (21.3-54.2); Mean Corpuscular HGB Conc 29.7 GM/DL (32-36); Mean Corpuscular Hemoglobin 21 PG (27-34); Mean Corpuscular Volume 69.3 FL (87-102); Monocytes # 0.4 10*3/uL (0.11-0.8); Monocytes % 6.8 % (1.7-12.7); NRBC # 0.02 10*3/uL; Neutrophils # 3.1 10*3/uL (1.4-7.4); Platelet Count 136 T/CUMM (130-400); Red Blood Count 4.86 MC/CUMM (3.8-5.5); Red Cell Distribution Width 19.2 % (9.3-17.3); White Blood Count 5.9 T/CUMM (4-12)
[2017-02-22 05:50] LABS: Hypochromasia 1+; Microcytosis 1+; Ovalocytes Slight; Platelet Estimate Adequate
--- NOTE | 2017-02-22 07:18 | Cardiology Progress Note ---
Assessment and Plan - Time spent with patient Time spent with patient: Greater than 30 minutes (1) Atrial fibrillation with RVR Status: Acute Assessment and plan: This of recent onset. Because of the duration she needs transesophageal echocardiogram and electrocardioversion. We will plan cannot today. I am concerned about chronic anticoagulation with patient who has chronic anemia. Also with her history of noncompliance and drug use I am a little hesitant to want to use long-term anticoagulation or that should be compliant with such. I think her window of cardioversion is now. I discussed this is noted with the patient and she is willing to have transesophageal echocardiogram and cardioversion. Current Visit: Yes (2) Anemia Status: Acute Assessment and plan: This is a chronic issue. She has had no history of bleeding. Current Visit: Yes (3) History of sudden cardiac successfully resuscitated Status: Chronic Assessment and plan: This was in 2011 and has AICD. At that time she had diminished left ventricular function but is now improved to nearly normal. Current Visit: Yes (4) Essential hypertension Status: Chronic Assessment and plan: At present this is managed on medications. Current Visit: Yes (5) AICD (automatic cardioverter/defibrillator) present Status: Chronic Assessment and plan: She has not received any therapies and recent history. Device is functioning appropriately as noted in the interrogation of the device 2 days ago. Current Visit: Yes (6) Methamphetamine abuse Status: Chronic Assessment and plan: This is a chronic issue that certainly interferes with her compliance. She denies this but she has positive urine drug screen. Current Visit: Yes (7) Marijuana abuse Status: Chronic Assessment and plan: She denies this but has positive urine drug screen. Current Visit: Yes (8) Alcohol abuse Status: Chronic Assessment and plan: This is certainly a long-term issue with regard to her compliance. Current Visit: Yes Cardiology - PN: Subj Interval history: Patient has no complaints this morning. She does not have any shortness of breath palpitations other symptomatology. She is continue her medications without difficulty. She still in atrial fibrillation with ventricular spot still greater than 100. Her CBC is stable today her H&H is stable. Her chemistries are also stable her electrolytes are normal. Patient is for transesophageal echocardiogram in the cardioversion today. I discussed this procedure again with the patient reviewing medications have procedure be carried out the risk as we did yesterday. She voices understanding agrees to proceed. Exam (Progress Note) - Constitutional Vitals: Period Temp Pulse Resp BP Sys/Collins Pulse Ox Last 24 Hr 97.0 F-98.7 F 66-124 18-20 93-127/55-73 93-98 Exam: General appearance: Over weight, no acute distress HEENT exam: normal inspection, atraumatic Neck exam: normal inspection no JVD. No carotid bruit. Trachea is in midline Respiratory/lungs exam: clear to auscultation bilaterally good air movement. Cardiovascular exam: Irregular rhythm, it is a little elevated, no murmur or gallop or rub. No precordial lift. Chest wall exam: nontender GI/Abdominal exam: normal bowel sounds, soft, nontender, no abdominal bruits or pulsatile masses. Extremeties/musculoskeletal: normal inspection without edema or cyanosis. Neurological exam: alert, oriented X3, no focal deficits Psychiatric exam: normal affect, normal mood. Cognitive function is grossly normal. Skin exam: normal color, warm Result/EKG - Labs CBC & BMP: 02/22/17 04:35 02/22/17 04:35 Labs: Laboratory Results - last 24 hr 02/20/17 02/20/17 02/22/17 15:09 15:09 04:35 WBC 5.3 5.9 RBC 4.73 4.86 Hgb 9.7 L 10.0 L Hct 33.3 L 33.7 L MCV 70.8 L 69.3 L MCH 21 L 21 L MCHC 29.0 L 29.7 L RDW 18.5 H 19.2 H Plt Count 135 136 MPV 11.3 Neut % (Auto) 51.8 52.0 Lymph % (Auto) 39.7 38.6 [place] % (Auto) 5.8 6.8 Eos % (Auto) 1.5 1.2 Baso % (Auto) 0.8 0.9 H Neut # (Auto) 2.8 3.1 Lymph # (Auto) 2.1 2.3 [place] # (Auto) 0.3 0.4 Eos # (Auto) 0.1 0.1 Baso # (Auto) 0.0 0.1 Immature Gran % 0.4 0.5 Nucleated RBC % 0.0 0.3 Immature Gran # 0.02 0.03 Nucleated RBCs # 0.00 0.02 Anemia Panel Interp Platelet Estimate Adequate Adequate Polychromasia Slight Hypochromasia Slight 1+ Anisocytosis 1+ Microcytosis 1+ Ovalocytes Slight Slight ESR Westergren 20 Absolute Retic 0.1 Percent Retic 2.0 H Retic Hgb Equivalent 21.5 L Hemoglobin A1 97.1 Hemoglobin A2 2.9 Hgb ELP Interp Sodium Potassium Chloride Carbon Dioxide Anion Gap BUN Creatinine GFR Calculation BUN/Creatinine Ratio Glucose Calculated Osmolality Calcium Magnesium Vitamin B12 650 Folate > 24.0 H Urine Test 02/22/17 02/22/17 04:35 07:01 WBC RBC Hgb Hct MCV MCH MCHC RDW Plt Count MPV Neut % (Auto) Lymph % (Auto) [place] % (Auto) Eos % (Auto) Baso % (Auto) Neut # (Auto) Lymph # (Auto) [place] # (Auto) Eos # (Auto) Baso # (Auto) Immature Gran % Nucleated RBC % Immature Gran # Nucleated RBCs # Anemia Panel Interp Platelet Estimate Polychromasia Hypochromasia Anisocytosis Microcytosis Ovalocytes ESR Westergren Absolute Retic Percent Retic Retic Hgb Equivalent Hemoglobin A1 Hemoglobin A2 Hgb ELP Interp Sodium 141 Potassium 3.7 Chloride 109 H Carbon Dioxide 23 Anion Gap 12.7 BUN 8 Creatinine 0.70 GFR Calculation 138 BUN/Creatinine Ratio 11.00 Glucose 108 H Calculated Osmolality 279.3 Calcium 8.4 L Magnesium 2.4 Vitamin B12 Folate Urine Test Negative - Impressions Impressions: Telemetry with atrial fibrillation and ventricular response around 100-110.
--- NOTE | 2017-02-22 07:35 | History and Physical Update ---
History and Physical Update - History and Physical H&P was reviewed, the patient examined and there: are no changes in the patients condition since last H&P was completed. - Dictation Physical: refer to H&P completed by admitting physician - Physical Exam Mental Status: alert and oriented Heart: other (Patient is in atrial fibrillation with a regular rhythm.) Lung: clear to auscultation Abdomen: within normal limits Vitals: within normal limits History and Physical Changes: None
[2017-02-22] MEDS ORDERED: PROPOFOL 200 MG/20 ML VIAL IV ONE (07:42)
[2017-02-22] MEDS ORDERED: LIDOCAINE 1% 5 ML VIAL ONE (07:42)
--- NOTE | 2017-02-22 07:59 | Cardiology Operative Report ---
Date of Procedure:: 02/22/17 Pre-op diagnosis: Atrial fibrillation with rapid ventricular response Post-op diagnosis: same (Patient converted to sinus rhythm) Procedure: Transesophageal echocardiogram Please see full report for details. This was carried out using MAC anesthesia. Cetacaine was used for topical anesthesia. Transesophageal echogram was carried in usual fashion. Significant findings was that of her left atrium being mildly dilated. There was no thrombus or shunts noted. The patient spontaneously converted during transesophageal echocardiogram to sinus rhythm. See the full report for details. Implants: None Anesthesia: MAC Surgeon / Physician: Shaquille Waldron Estimated blood loss: none Specimens: none sent Condition: stable Disposition: floor
[2017-02-22] MEDS ORDERED: MIDAZOLAM 2 MG/2 ML VIAL ONE (08:21)
--- NOTE | 2017-02-22 10:08 | Discharge Summary ---
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 MENDEZ Ms. Antony, 37BF, has risk factors significant for: hypertension. 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 She previously saw Dr. Mendez in clinic, she got behind on her bills and could not afford to pay his office therefore she transitioned to Dr. Kuo at [place]. She would like to change back to Dr. Mendez. Patient tells me she has her device interrogated every 3 months. Cardiac catheterization September 11, 2012 revealed no evidence of coronary artery disease, EF 50% without significant valvular disease. Patient presented to the emergency department at [facility] February 20, 2017 with complaints of dizziness, generalized weakness and lightheadedness. She was diagnosed with atrial fibrillation with rapid ventricular response. Her device was interrogated and found her initial onset of atrial fibrillation began february and lasted 52 hours. She then converted back to normal sinus rhythm prior to this atrial fibrillation episode. She required IV diltiazem overnight. She was being prepared for DCCV. When she underwent BARBARA, prior to DCCV, she converted back to normal sinus rhythm therefore did not require electrical cardioversion. She was found to be methamphetamine positive, marijuana positive and acknowledges frequent use of alcohol. She was counseled extensively regarding the merits of cessation of the previously mentioned drugs. She has a history of chronic anemia thought to be related to heavy menses. She had quit taking her oral iron. During this admission, she was started on Eliquis, oral iron was reinitiated and she verbalized the importance of continuing these medications. Having felt him at maximal medical therapy, patient is being released in stable condition. She is being given a 1-2 weeks follow-up with Dr. Mendez. She will require: BMP, magnesium, CBC and EKG. Discharge medications include the following: Eliquis 5 mg orally twice daily Diltiazem CD 240 mg orally daily Ferrous sulfate 325 mg orally twice daily Sotalol 120 mg orally twice daily Ascorbic acid 1000 mg orally twice daily - Time spent with patient Time with patient DS: Greater than 30 minutes Diagnosis - Discharge Diagnosis (1) Atrial fibrillation with RVR Status: Resolved (2) Essential hypertension Status: Chronic (3) History of sudden cardiac successfully resuscitated Status: Chronic (4) AICD (automatic cardioverter/defibrillator) present Status: Chronic (5) Methamphetamine abuse Status: Chronic (6) Marijuana abuse Status: Chronic (7) Alcohol abuse Status: Chronic Specialty Discharge - Follow Up or Referrals Follow up with: Shaquille Mendez MD [Physician] - (1-2 weeks. BMP, Mg, CBC and EKG) Discharge Plan - Discharge Data Disposition: Disch To Home/Self Care Condition at Discharge: Stable Discharge Diet: heart healthy Activity: resume usual activities as tolerated Hygiene: no restrictions Weight Bearing at Discharge: full weight bearing Driving: not until seen by doctor Contact your physician if you experience:: fever over 101, Difficulty voiding, Redness or swelling, Nausea/Vomiting, Shortness of breath, Bleeding, pain uncontrolled by pain medications - Discharge Medications New Ascorbic Acid Tab [Vitamin C Tab] 1,000 mg PO BID #60 tablet Diltiazem Cd Cap [Cardizem CD] 240 mg PO DAILY #30 capsule Ferrous Sulfate Tab [Feosol Original Tab] 325 mg PO BID #60 tablet Apixaban [Eliquis] 5 mg PO BID #60 tablet Sotalol [Betapace] 120 mg PO BID #60 tablet Discontinued Metoprolol Tartrate 50 mg PO BID amLODIPine [Norvasc] 10 mg PO QAM - Follow Up or Referral Follow Up: Shaquille Mendez MD [Physician] - (1-2 weeks. BMP, Mg, CBC and EKG) - Forms/Instructions Additional Discharge Instructions: Please give patient one dose of Diltiazem 60mg to take with her to take at home tonight. She will start Diltiazem CD in the morning but needs a dose of short acting Diltiazem tonight. Exam - Constitutional Vitals: Period Temp Pulse Resp BP Sys/Collins Pulse Ox Last 24 Hr 97.0 F-98.7 F 66-124 18-20 93-122/55-73 93-98 Exam: General: [Appears well with no apparent distress.] [Pleasant and cooperative. ] [Appears comfortable.] HEENT: [PERRL, normocephalic, atraumatic. Mucous membranes moist. No jaundice noted. Conjunctiva moist and clear, sclerae anicteric] Neck: No JVD/HJR, no thyromegaly or lymphadenopathy noted. No carotid bruit appreciated Cardiac: [Regular rate and rhythm. [No murmur rub or gallop.] Lungs: [Clear to auscultation without accessory muscle use to assist the respiratory pattern.] Not requiring oxygen. Abdomen: Soft, bowel sounds normoactive. Nontender and nondistended. No abdominal bruit or thrill noted. No masses noted. Musculoskeletal: No fluid collection. Decreased range of motion is noted. Extremities: No clubbing, cyanosis noted. [ No edema noted.] Upper extremity pulses 2+. Lower extremity pulses 2+. Capillary refill less than 3 seconds. Skin: No unusual lesions or rashes. No skin breakdown appreciated. Neuro: Awake, alert and oriented 3. Moves all extremities well without hemiparesis or paralysis. No essential tremor is appreciated. Discharge Results Procedures and tests throughout hospitalization: Pending Orders 02/20/17 14:54 Occult Blood, Stool Routine 02/22/17 06:12 CL heart Routine 02/23/17 04:00 BMP w/ Mg [Basic Metabolic Panel w/Mg] IN AM CBC [Comp Blood Count Auto Diff] IN AM 02/24/17 04:00 BMP w/ Mg [Basic Metabolic Panel w/Mg] IN AM CBC [Comp Blood Count Auto Diff] IN AM Labs on day of discharge: Labs from last 24 hours 02/22/17 02/22/17 02/22/17 07:01 04:35 04:35 WBC 5.9 RBC 4.86 Hgb 10.0 L Hct 33.7 L MCV 69.3 L MCH 21 L MCHC 29.7 L RDW 19.2 H Plt Count 136 Neut % (Auto) 52.0 Lymph % (Auto) 38.6 [place] % (Auto) 6.8 Eos % (Auto) 1.2 Baso % (Auto) 0.9 H Neut # (Auto) 3.1 Lymph # (Auto) 2.3 [place] # (Auto) 0.4 Eos # (Auto) 0.1 Baso # (Auto) 0.1 Immature Gran % 0.5 Nucleated RBC % 0.3 Immature Gran # 0.03 Nucleated RBCs # 0.02 Platelet Estimate Adequate Hypochromasia 1+ Microcytosis 1+ Ovalocytes Slight Sodium 141 Potassium 3.7 Chloride 109 H Carbon Dioxide 23 Anion Gap 12.7 BUN 8 Creatinine 0.70 GFR Calculation 138 BUN/Creatinine Ratio 11.00 Glucose 108 H Calculated Osmolality 279.3 Calcium 8.4 L Magnesium 2.4 Urine Test Negative - Imaging and Cardiology Cardiology Procedure: report reviewed by me Procedure: Chest x-ray: report reviewed by me DS: Provider Date of admission: 02/20/17 11:32 Primary care physician: . Rosmery PCP Attending physician on admission: Lakhwinder Ortiz Discharging clinician: Selin Clark NP Expected date of discharge: 02/22/17
[2017-02-22] MEDS: APIXABAN 5 MG TABLET PO SCH (10:38)
[2017-02-22] MEDS: FERROUS SULFATE 325 MG TABLET PO SCH (10:38)
[2017-02-22] MEDS: SOTALOL 80 MG TABLET PO SCH (10:38)
[2017-02-22] MEDS: ASCORBIC ACID 500 MG TABLET PO SCH (10:38)
[2017-02-22] MEDS: DILTIAZEM 60 MG TABLET PO SCH (10:39)
[2017-02-22 12:06] VITALS: BP 113/64
--- NOTE | 2017-02-22 12:19 | EKG Report ---
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
--- NOTE | 2017-02-22 12:25 | EKG Report ---
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
--- NOTE | 2017-02-22 19:19 | ECHO Report ---
Christine Antony Exam Date: 02/22/2017 07:43 Referring Physician: Technologist: Nataliya Terrell LRCP Age: 37 Ht (in): Wt (lb): Gender: F Exam Location: [facility] Echo Pre-op Dx: cardio version evaluation Post-op Dx: BP: / HR: Rhythm: Sinus Technical Quality: Fair Specimens Taken None Devices Implanted None Medications MAC Complications None Estimated Blood Loss None Proc. Components Transesophageal echocardiogram used to obtain gastric and esophageal views. 2D and M-mode ultrasound obtained. Ye flood contrast study. IMPRESSIONS 1. Left ventricle is normal size and systolic function ejection fraction of 50%. Mild concentric left ventricular hypertrophy 2. Left atrium at worst is mildly dilated. 3. Right-sided chambers are normal size. 4. No intracardiac mass or thrombus seen. 5. Intra-atrial and intraventricular septum are normal without any shunt. 6. Valvular structures are overall unremarkable. 7. During the procedure the patient converted from atrial fibrillation to sinus rhythm. MEASUREMENTS (Male / Female) Normal Values FINDINGS Left Ventricle Left ventricle is probably normal size with ejection fraction of 50+%. No segmental wall motion maladies and there is probably some mild concentric left ventricular hypertrophy. Right Ventricle Right ventricle is normal size systolic function. Right Atrium Right atrium is probably normal size. Left Atrium Left atrium is mildly dilated without thrombus. Primary vein normal flow. LA Appendage Atrial appendage is without thrombus or abnormality. IA Septum Intra-atrial septum is anatomically normal without visible shunt or PFO. Omicron cavitation there is no shunting noted. Mitral Valve Mitral valve is anatomically normal with trace to mild regurgitation. Aortic Valve Tricuspid aortic valve with normal motion and function without stenosis or insufficiency. Tricuspid Valve Tricuspid valve is anatomically normal with trace regurgitation. Pulmonic Valve Pulmonic valve is anatomically function normal. No gross Doppler normality. Pericardium There is no effusion. Aorta Aortic root normal diameter. Shaquille Waldron MD (Electronically Signed) Final Date: 22 Feb 2017 19:19
[2017-02-23] MEDS ORDERED: DILTIAZEM CD 240 MG CAPSULE PO SCH (09:00)
== END 2017-02-22 13:54 | disposition home or self-care (01) | DRG 201 ==
LOC: N.ED 09:45 → N.EDINP 11:32 → N.TELES 11:56
PROVIDERS: ADMIT Internal Medicine Cardiovascular Disease; ATTEND Internal Medicine Cardiovascular Disease